=== PATIENT | female | born 1985 | race Two or more races ===

== ENCOUNTER 2016-05-23 11:18 | Emergency (ER) | payer OTHER ==
[~2016-05-23] VITALS: Ht 165.1 cm; Wt 49.9 kg
--- NOTE | 2016-05-23 11:18 | NUR ---
PT BIB [employer] C/O UNWITNESSED SEIZURE 20 MINS STAMPING B[employer]CH [employer]. NO SEIZURE. PLACED ON SEIZURE PRECAUTION. OK TO BOOK. PLACED ON MONITOR. VSS. AWAITING MD ORDER
--- NOTE | 2016-05-23 11:30 | NUR ---
AT [facility]
[2016-05-23] MEDS ORDERED: IV NS 0.9% 1,000 ML BAG IV ONE (12:00)
--- NOTE | 2016-05-23 12:00 | NUR ---
RAC #20 IV ACCESS
[2016-05-23] MEDS ORDERED: IV NS 0.9% 1,000 ML ONE (12:04)
[2016-05-23] MEDS ORDERED: IV SET PRIMARY PUMP SET 1 EA INFUS.SET MC ONE (12:04)
--- NOTE | 2016-05-23 12:12 | NUR ---
LAB AT BEDSIDE COLLECTING SAMPLE SENT TO LAB.
[2016-05-23 12:30] LABS: BASOPHILS # (AUTO) 0.3 /CMM (0.0-0.2); BASOPHILS % (AUTO) 2.2 % (0.0-2.0); EOSINOPHILS % (AUTO) 0.1 % (0.0-6.0); HEMATOCRIT 40 % (33-45); HEMOGLOBIN 13.4 g/dL (11.5-14.8); LYMPHOCYTES # (AUTO) 1.6 /CMM (0.8-4.8); LYMPHOCYTES % (AUTO) 12.6 % (20.0-44.0); MEAN CORPUSCULAR HEMOGLOBIN 28 PG (26.0-33.0); MEAN CORPUSCULAR HGB CONC 33 g/dl (31.0-36.0); MEAN CORPUSCULAR VOLUME 83 fL (82-100); MONOCYTES # (AUTO) 0.6 /CMM (0.1-1.30); MONOCYTES % (AUTO) 4.4 % (2.0-12.0); NEUTROPHILS # (AUTO) 10.2 /CMM (1.8-8.9); NEUTROPHILS % (AUTO) 80.7 % (43.0-81.0); PLATELET COUNT (AUTO) 363 /CMM (150-450); RED BLOOD CELL COUNT(AUTO) 4.86 MIL/uL (4.0-5.2); WHITE BLOOD COUNT (AUTO) 12.8 K/uL (4.3-11.0)
[2016-05-23 12:35] LABS: CALCIUM, SERUM 8.8 mg/dL (8.5-10.1); CARBON DIOXIDE 23 mmol/L (21-32); CHLORIDE 103 mmol/L (98-107); CREATININE 0.7 mg/dL (0.6-1.3); GFR 98 mL/min (>60); GLUCOSE 103 mg/dL (74-106); POTASSIUM 3.9 mmol/L (3.5-5.1); SODIUM SERUM 137 mmol/L (136-145); UREA NITROGEN, BLOOD 16 mg/dL (7-18)
[2016-05-23 12:41] LABS: ALANINE AMINOTRANSFERASE 18 U/L (12-78); ALBUMIN 3.8 g/dL (3.4-5.0); ALCOHOL, BLOOD < 3 mg/dL (0-0); ALKALINE PHOSPHATASE 84 U/L (46-116); ASPARTATE AMINOTRANSFERASE 20 U/L (15-37); BILIRUBIN,DIRECT 0.2 mg/dL (0.0-0.2); BILIRUBIN,TOTAL 0.7 mg/dL (0.2-1.0); TOTAL PROTEIN, SERUM 7.5 g/dL (6.4-8.2)
[2016-05-23 12:45] LABS: ACETAMINOPHEN 0 ug/ml (10-30); SALICYLATE 2.4 mg/dL (2.8-20.0)
--- NOTE | 2016-05-23 12:58 | NUR ---
URINE SAMPLE COLLECTED SENT TO LAB
[2016-05-23 13:02] LABS: APPEARANCE,URINE Clear (CLEAR); BLOOD, URINE Trace-lysed Ery/uL (NEGATIVE); COLOR,URINE Yellow (YELLOW); KETONES,URINE 40 (NEGATIVE); LEUKOCYTE ESTERASE ,URINE Negative (NEGATIVE); NITRITE, URINE Negative (NEGATIVE); PH,URINE 5.5 (5.0-8.0); PROTEIN,URINE Negative (NEGATIVE); UGLUCOSE Negative (NEGATIVE); UROBILINOGEN,URINE 0.2 EU/dL (0.2)
[2016-05-23 13:05] LABS: BILIRUBIN,URINE SMALL (NEGATIVE)
[2016-05-23 13:07] LABS: ADD URINE CULTURE NO; BACTERIA,URINE Few /HPF (None Seen); SQUAMOUS EPITHELIAL CELL,UR Few /HPF (None Seen)
[2016-05-23 13:12] LABS: PHENCYCLIDINE SCREEN,URINE NEGATIVE (NEGATIVE)
[2016-05-23 13:13] LABS: CANNABINOID, URINE POSITIVE (NEGATIVE)
[2016-05-23 13:33] LABS: PHENYTOIN (DILANTIN) < 0.5 ug/ml (10.0-20.0)
[2016-05-23 13:35] LABS: VALPROIC ACID < 3 ug/mL (50-100)
[2016-05-23] MEDS ORDERED: LEVETIRACETAM (250 MG) 250 MG TABLET PO ONE ×2 (13:55→14:00)
--- NOTE | 2016-05-23 14:03 | NUR ---
IV removed. Catheter intact and site benign. Pressure and 4x4 applied to site. No bleeding noted. Patient discharged to home in stable condition. Written and verbal after care instructions given. Patient verbalizes understanding of instruction.
[2016-05-23 14:09] VITALS: BP 132/82
== END 2016-05-23 14:10 ==
LOC: ER 11:20
DX: R56.9 Unspecified convulsions (principal); F19.10 Other psychoactive substance abuse, uncomplicated
CPT/HCPCS: 36415; 80048; 80076; 80164; 80185; 80305; 80329; 81001; 82962; 84703; 85025; 96360; 99284; A4606; G0480 ×2; J7030; Z7610; 81000-TC; G6039-TC